=== PATIENT | male | born 1995 | race Two or more races ===

== ENCOUNTER 2021-12-28 16:32 | Emergency (ER) | payer OTHER ==
[~2021-12-28] VITALS: Ht 188 cm; Wt 72.7 kg
[2021-12-28 17:17] VITALS: BP 127/82
--- NOTE | 2021-12-28 17:46 | RAD ---
INDICATION: Reason: SHORTNESS OF BREATH / Spl. Instructions: / History: COMPARISON: None. FINDINGS: 2 view of chest obtained. No focal airspace consolidation or pulmonary edema. Cardiomediastinal silhouette is unremarkable. No gross osseous destructive lesion. IMPRESSION: * No focal airspace consolidation or edema. Electronically signed by: Taurus Faustin MD (12/28/2021 5:43 PM) [id number]
[2021-12-28 17:59] LABS: INFLUENZA A PATIENT NEGATIVE (NEGATIVE); INFLUENZA B PATIENT NEGATIVE (NEGATIVE)
[2021-12-28] MEDS ORDERED: ALBU2.5V8 INH (19:23)
[2021-12-28] MEDS ORDERED: ONDA4TAB12 PO (19:23)
--- NOTE | 2021-12-28 19:24 | PHYS DOC ---
Past Medical History Past Surgical History: No Surgical History (SAMUEL WRIGHT APRN) General Adult EDM: Chief Complaint: FLU SYMPTOM HPI: HPI: Patient is a 26-year-old male who presents to the emergency department for a productive cough, fever, nausea, vomiting, myalgias, nasal congestion and shortness of breath that started this morning. Patient denies any chest pain, diarrhea, sick exposures. Patient has no medical history. He is febrile in the emergency department with mild tachycardia. (SAMUEL WRIGHT APRN) Review of Systems: Review of Systems: Constitutional: negative unless reported in HPI Eyes: negative unless reported in HPI HENT: negative unless reported in HPI Respiratory: negative unless reported in HPI Cardiovascular: negative unless reported in HPI GI: negative unless reported in HPI : negative unless reported in HPI Musculoskeletal: negative unless reported in HPI Integument: negative unless reported in HPI Neurologic: negative unless reported in HPI Endocrine: negative unless reported in HPI Lymphatic: negative unless reported in HPI Psychiatric: negative unless reported in HPI (SAMUEL WRIGHT APRN) Heart Score: C/O Chest Pain: No Risk Factors: Risk Factors: DM, Current or recent (<one month) smoker, HTN, HLP, family history of CAD, obesity. Risk Scores: Score 0 - 3: 2.5% MACE over next 6 weeks - Discharge Home Score 4 - 6: 20.3% MACE over next 6 weeks - Admit for Clinical Observation Score 7 - 10: 72.7% MACE over next 6 weeks - Early Invasive Strategies (SAMUEL WRIGHT APRN) Allergies: Allergies: Allergies Coded Allergies Type Severity Reaction Last Updated Verified No Known Drug Allergies 12/28/21 No (SAMUEL WRIGHT APRN) Physical Exam: PE: Constitutional: Well developed, well nourished, no acute distress, non-toxic appearance. [] HENT: Normocephalic, atraumatic, bilateral external ears normal, oropharynx moist, no oral exudates, nose normal. [] Eyes: PERRL, EOMI, conjunctiva normal, no discharge. [] Neck: Normal range of motion, no tenderness, supple, no stridor. [] Cardiovascular:Heart rate tachycardic rhythm, no murmur [] Lungs & Thorax: Bilateral breath sounds clear to auscultation [] Abdomen: Bowel sounds normal, soft, no tenderness, no masses, no pulsatile masses. [] Skin: Warm, dry, no erythema, no rash. [] Back: Normal range of motion Extremities: No tenderness, no cyanosis, no clubbing, ROM intact, no edema. [] Neurologic: Alert and oriented X 3, normal motor function, normal sensory function, no focal deficits noted. [] Psychologic: Affect normal, judgement normal, mood normal. [] (SAMUEL WRIGHT APRN) Current Patient Data: Labs: Laboratory Tests Test 12/28/21 17:22 Influenza Type A Antigen Negative (NEGATIVE) Influenza Type B Antigen Negative (NEGATIVE) SARS-CoV-2 Antigen (Rapid) Negative (NEGATIVE) Vital Signs: Vital Signs Date Time Temp Pulse Resp B/P (MAP) Pulse Ox O2 Delivery O2 Flow Rate FiO2 12/28/21 17:17 101.3 107 24 127/82 (97) 96 Room Air 101.3 (SAMUEL WRIGHT APRN) EKG: EKG: [] (SAMUEL WRIGHT APRN) Radiology/Procedures: Radiology/Procedures: []PROCEDURE: CHEST PA & LATERAL INDICATION: Reason: SHORTNESS OF BREATH / Spl. Instructions: / History: COMPARISON: None. FINDINGS: 2 view of chest obtained. No focal airspace consolidation or pulmonary edema. Cardiomediastinal silhouette is unremarkable. No gross osseous destructive lesion. IMPRESSION: * No focal airspace consolidation or edema. Electronically signed by: Rickie Faustin MD (12/28/2021 5:43 PM) [id number] DICTATED and SIGNED BY: RICKIE FAUSTIN MD DATE: 12/28/21 [id number] (SAMUEL WRIGHT APRN) Course & Med Decision Making: Course & Med Decision Making Pertinent Labs and Imaging studies reviewed. (See chart for details) [] Patient presents to the emergency department for a productive cough, nasal congestion, myalgias, fever, nausea, vomiting, shortness of breath. Patient had a negative rapid influenza and COVID test but a Covid PCR will be sent out to confirm. Patient had a chest x-ray performed that showed no acute findings. Fever treated in the ER. Patient will be discharged home with an inhaler for his shortness of breath and nausea medication. Advised to take Tylenol and ibuprofen for his pain and fevers and Mucinex for his congestion. Advised to self isolate until he receives his Covid results. My MDM discharge. (SAMUEL WRIGHT APRN) Course & Med Decision Making Patients Care and treatment plan provided by ER mid-level Practitioner. I was available for consult. Patient's chart reviewed. (ZEE JORDAN I DO) Archana Disclaimer: Archana Disclaimer: This electronic medical record was generated, in whole or in part, using a voice recognition dictation system. (SAMUEL WRIGHT APRN) Departure Departure Impression: Primary Impression: Person under investigation for COVID-19 Disposition: HOME / SELF CARE / HOMELESS Condition: GOOD Patient Instructions: Cough, Adult, Nausea and Vomiting, [id number] Additional Instructions: You were seen in the emergency department today for a cough, shortness of breath, nausea, vomiting, nasal congestion and a fever. Your rapid influenza and Covid test was negative. Your chest x-ray did not show any acute findings. We sent out a Covid test to confirm your results and you will be notified of those results in 1 to 2 days. Please self isolate until you receive these results. Please treat your fever and body aches with Tylenol and/or ibuprofen. You are being discharged home with nausea medication that you can take as needed. Please increase your fluids and rest. For your shortness of breath you can use the inhaler prescribed for you. For your nasal congestion use Mucinex [id number]. I would stick to a bland diet including bananas, rice, applesauce. Please avoid eating anything that is spicy, greasy or fatty. Follow-up with your primary care provider on Friday regarding your ER visit. If you do not have a primary care provider he can follow-up with one on the d ischarge paperwork. Return to the emergency department if you develop shortness of breath, chest pain, high fevers refractory to treatment, intractable nausea or vomiting, weakness. Scripts Ondansetron (ONDANSETRON ODT) 4 Mg Tab.rapdis 1 TAB PO PRN Q6-8HRS for 7 Days, #28 TAB 0 Refills Prov: SAMUEL WRIGHT APRN 12/28/21 Albuterol Sulfate (Proair Hfa) 8.5 Gm Hfa.aer.ad 1 PUFF INH PRN Q6HRS PRN for SHORTNESS OF BREATH for 30 Days, #1 EACH 0 Refills Prov: SAMUEL WRIGHT APRN 12/28/21 SAMUEL WRIGHT APRN Dec 28, 2021 19:24 ZEE JORDAN DO Dec 29, 2021 03:09
[2021-12-28] MEDS ORDERED: ACETAMINOPHEN 500 MG TABLET PO ONE (19:30)
--- NOTE | 2021-12-31 11:12 | NUR ---
IP: Attempted to contact pt concerning covid results. No answer, left a voicemail to return the call.
== END 2021-12-28 19:45 | disposition home or self-care (01) ==
LOC: ER 16:32
DX: R05.9 Cough, unspecified (principal); Z20.822 Contact with and (suspected) exposure to COVID-19; R50.9 Fever, unspecified; R11.2 Nausea with vomiting, unspecified; M79.10 Myalgia, unspecified site; R09.81 Nasal congestion; R06.02 Shortness of breath
CPT/HCPCS: 71046; 87428; 99284; U0003; U0005